=== PATIENT | female | born 1970 | race Caucasian/White ===

== ENCOUNTER 2023-12-23 09:27 | Outpatient (CLI) | payer BC, SELFPAY | END 2023-12-23 09:28 | disposition home or self-care (01) | LOC: NFLDUCREF 09:29 | PROVIDERS: PCP Nurse Practitioner Family; Visit Provider Nurse Practitioner Family | DX: R21 Rash and other nonspecific skin eruption (principal); R53.83 Other fatigue | CPT/HCPCS: 86618 ==